=== PATIENT | female | born 1960 | race Caucasian/White ===

== ENCOUNTER 2017-03-20 12:30 | Emergency (ER) | payer BC, MEDICAID ==
[2017-03-20 12:30] VITALS: BMI 29.9
[2017-03-20 12:39] VITALS: TEMP 98
[2017-03-20 12:55] VITALS: RESP 18
--- NOTE | 2017-03-20 13:04 | ED PDOC ---
Arrival/HPI - General Chief Complaint: Upper Extremity Problem/Injury Time Seen by Provider: 03/20/17 12:51 Historian: Patient - History of Present Illness Narrative History of Present Illness (Text): 03/20/17 13:01 A 56 year old female, whose past medical history includes diabetes and hypothyroidism, presents to the emergency department for 3 day duration right shoulder pain radiating to the neck. She describes the pain as a pinching sensation. The patient denies fevers, chills, headache, dizziness, chest pain, shortness of breath, dyspnea on exertion, cough, abdominal pain, nausea, vomiting, diarrhea, back pain, urinary/bowel changes, or any other complaint. Time/Duration: Other (3 days) Symptom Onset: Sudden Symptom Course: Unchanged Activities at Onset: Rest, Light Context: Home Past Medical History - Provider Review Nursing Documentation Reviewed: Yes - Infectious Disease Hx of Infectious Diseases: None - Cardiac Hx Cardiac Disorders: Yes Hx Hypotension: Yes - Pulmonary Hx Respiratory Disorders: No - Neurological Hx Neurological Disorder: No - HEENT Hx HEENT Disorder: No - Renal Hx Renal Disorder: No - Endocrine/Metabolic Hx Endocrine Disorders: Yes Hx Diabetes Mellitus Type 2: Yes Hx Hypothyroidism: Yes - Hematological/Oncological Hx Blood Disorders: No - Integumentary Hx Dermatological Disorder: No - Musculoskeletal/Rheumatological Hx Musculoskeletal Disorders: No - Gastrointestinal Hx Gastrointestinal Disorders: No - Genitourinary/Gynecological Hx Genitourinary Disorders: No - Psychiatric Hx Psychophysiologic Disorder: No Hx Emotional Abuse: No Hx Physical Abuse: No Hx Substance Use: No - Surgical History Hx Cholecystectomy: Yes - Anesthesia Hx Anesthesia: Yes Hx Anesthesia Reactions: No - Suicidal Assessment Feels Threatened In Home Enviroment: No Family/Social History - Physician Review Nursing Documentation Reviewed: Yes Family/Social History: No Known Family HX Smoking Status: Never Smoked Hx Alcohol Use: No Hx Substance Use: No Hx Substance Use Treatment: No Allergies/Home Meds Allergies/Adverse Reactions: Allergies No Known Allergies Allergy (Verified 03/20/17 12:34) Home Medications: Home Meds Medication Instructions Recorded Confirmed Levothyroxine Sodium 0 mg PO DAILY 12/18/13 03/20/17 Metformin Hydrochloride [Metformin] 500 mg PO DAILY 12/18/13 03/20/17 Empagliflozin [Jardiance] 10 mg PO DAILY 03/20/17 03/20/17 Lisinopril [Zestril] 2.5 mg PO DAILY 03/20/17 03/20/17 Review of Systems - Physician Review All systems were reviewed & negative as marked: Yes - Review of Systems Constitutional: absent: Fevers, Night Sweats Respiratory: absent: SOB, Cough Cardiovascular: absent: Chest Pain, FRANK Gastrointestinal: absent: Abdominal Pain, Stool Changes, Diarrhea, Nausea, Vomiting Genitourinary Female: absent: Urine Output Changes Musculoskeletal: Neck Pain, Other (Right shoulder pain). absent: Back Pain Neurological: Other (No numbness). absent: Headache, Dizziness, Focal Weakness Physical Exam Vital Signs Reviewed: Yes Vital Signs Temp Pulse Resp BP Pulse Ox 03/20/17 15:12 84 18 120/82 100 03/20/17 14:09 86 18 118/79 98 03/20/17 12:40 98.0 F 91 H 18 120/87 98 03/20/17 12:36 98.0 F 91 H 17 120/87 98 Temperature: Afebrile Blood Pressure: Normal Pulse: Tachycardic Respiratory Rate: Normal Appearance: Positive for: Well-Appearing, Non-Toxic, Comfortable Pain Distress: Mild Mental Status: Positive for: Alert and Oriented X 3 - Systems Exam Head: Present: Atraumatic, Normocephalic Pupils: Present: PERRL Extroacular Muscles: Present: EOMI Conjunctiva: Present: Normal Mouth: Present: Moist Mucous Membranes Neck: Present: Normal Range of Motion, Paraspinal Tenderness (Right paraspinal tenderness). No: MIDLINE TENDERNESS Respiratory/Chest: Present: Clear to Auscultation, Good Air Exchange. No: Respiratory Distress, Accessory Muscle Use Cardiovascular: Present: Regular Rate and Rhythm, Normal S1, S2. No: Murmurs Abdomen: Present: Normal Bowel Sounds. No: Tenderness, Distention, Peritoneal Signs Back: Present: Normal Inspection Upper Extremity: Present: Tenderness (right sided anterior shoulder tenderness) . No: Normal ROM (limited ROM even with my assistance secondary to pain. Rigth sided pain with movement of the right shoulder anteriorly (10 degrees) and laterally (30 degrees)) Lower Extremity: Present: Normal Inspection. No: Edema Neurological: Present: GCS=15, CN II-XII Intact, Speech Normal Skin: Present: Warm, Dry, Normal Color. No: Rashes Psychiatric: Present: Alert, Oriented x 3, Normal Insight, Normal Concentration Medical Decision Making ED Course and Treatment: 03/20/17 14:07 Impression: A 56 year old female presents with 3 day duration right shoulder and neck pain r /o arthritis r/o tendonitis r/o msk Plan: -- Right Shoulder X-Ray -- Labs -- Urinalysis -- Flexeril, Toradol -- Reassess and disposition Prior Visits: Notes and results from previous visits were reviewed. Patient was last seen in the emergency department on 02/14/14. The patient was seen in the emergency department s/p a fall on her hands and knees. Patient was discharged home on Naprosyn. Progress Notes: Radiographs of the Right Shoulder Dictator : Dex Guerra MD Report Date : 03/20/2017 14:48:15 IMPRESSION: No evidence of acute fracture or dislocation. Moderate osteoarthritic changes at the right AC joint On reevaluation, patient felt much better. Increased ROM. Will Rx Flexeril and Motrin and will have her follow up with her PMD in 1-2days. - RAD Interpretation Radiology Orders: 03/20/17 13:01 SHOULDER RIGHT [RAD] Stat - Medication Orders Current Medication Orders: Discontinued Medications Cyclobenzaprine HCl (Flexeril) 5 mg PO STAT STA Stop: 03/20/17 13:02 Last Admin: 03/20/17 14:52 Dose: 5 mg Ketorolac Tromethamine (Toradol) 60 mg IM STAT STA Stop: 03/20/17 13:02 Last Admin: 03/20/17 14:52 Dose: 60 mg MAR Pain Assessment Document 03/20/17 14:52 SF (Rec: 03/20/17 14:52 SF [id number]) Pain Reassessment Is this a pain reassessment? Yes Sleep Is patient sleeping during reassessment? No Presence of Pain Presence of Pain Yes IM Administration Charges Document 03/20/17 14:52 SF (Rec: 03/20/17 14:52 SF [email or web address]) Injection Site MAR Injection Site Left Deltoid Charges for Administration # of IM Administrations 1 - Scribe Statement The provider has reviewed the documentation as recorded by the Scribe Gretta Francis Provider Scribe Attestation: All medical record entries made by the Scribe were at my direction and personally dictated by me. I have reviewed the chart and agree that the record accurately reflects my personal performance of the history, physical exam, medical decision making, and the department course for this patient. I have also personally directed, reviewed, and agree with the discharge instructions and disposition. Disposition/Present on Arrival - Present on Arrival Any Indicators Present on Arrival: No History of DVT/PE: No History of Uncontrolled Diabetes: No Urinary Catheter: No History of Decub. Ulcer: No History Surgical Site Infection Following: None - Disposition Have Diagnosis and Disposition been Completed?: Yes Diagnosis: Right shoulder strain Disposition: HOME/ ROUTINE Disposition Time: 14:58 Patient Plan: Discharge Condition: IMPROVED Discharge Instructions (ExitCare): Rotator Cuff Injury (ED) Additional Instructions: Ms Hawley thank you for letting us take care of you today. Your provider was Dr. Mayes. You were treated for Shoulder Strain. The emergency medical care you received today was directed at your acute symptoms. If you were prescribed any medication, please fill it and take as directed. It may take several days for your symptoms to resolve. Return to the Emergency Department if your symptoms worsen, do not improve, or if you have any other problems. Please contact your doctor or call one of the physicians/clinics you have been referred to that are listed on the Patient Visit Information form that is included in your discharge packet. Bring any paperwork you were given at discharge with you along with any medications you are taking to your follow up visit. Our treatment cannot replace ongoing medical care by a primary care provider (PCP) outside of the emergency department. Thank you for allowing the [facility] team to be part of your care today. If you had an X-Ray or CT scan: A Radiologist will review the ED reading if any change in treatment is needed we will contact you. If you had a blood, urine, or wound culture: It will take several days for the results, if any change in treatment is needed we will contact you. If you had an STI test: It will take 48 hours for the results. Please call after 1 week if you have not heard back. Prescriptions: Cyclobenzaprine [Cyclobenzaprine HCl] 5 mg PO Q8 PRN #20 tab PRN Reason: Muscle Spasm Ibuprofen [Motrin] 600 mg PO Q6 PRN #30 tab PRN Reason: Pain, Moderate (4-7) Referrals: PCP,NO [Primary Care Provider] - Follow up with primary Forms: [employer] ([place]), WORK NOTE
--- NOTE | 2017-03-20 14:49 | RAD ---
PROCEDURE: Radiographs of the Right Shoulder HISTORY: pain r/o fx COMPARISON: No prior. FINDINGS: BONES: Normal. No fracture. JOINTS: Moderate osteoarthritic changes noted at the right AC joint associated with inferior Spur. SOFT TISSUES: Normal. OTHER FINDINGS: None. IMPRESSION: No evidence of acute fracture or dislocation. Moderate osteoarthritic changes at the right AC joint
[2017-03-20 15:14] VITALS: BP 120/82; PULSE 84; O2SAT 100
== END 2017-03-20 15:15 | disposition home or self-care (01) ==
LOC: ED 12:30
DX: S46.911A Strain of unspecified muscle, fascia and tendon at shoulder and upper arm level, right arm, initial encounter (principal); X58.XXXA Exposure to other specified factors, initial encounter; Y92.009 Unspecified place in unspecified non-institutional (private) residence as the place of occurrence of the external cause; E03.9 Hypothyroidism, unspecified; E11.9 Type 2 diabetes mellitus without complications; Z79.84 Long term (current) use of oral hypoglycemic drugs
CPT/HCPCS: 73030; 96372; 99285; J1885

== ENCOUNTER 2017-07-11 11:18 | Emergency (ER) | payer BC ==
[2017-07-11 11:19] VITALS: BMI 29.9
[2017-07-11] MEDS ORDERED: MethylPREDNISolone Depo 40 mg/ml Inj IM STA (11:54)
--- NOTE | 2017-07-11 11:58 | ED PDOC ---
Arrival/HPI - General Chief Complaint: Lower Extremity Problem/Injury Time Seen by Provider: 07/11/17 11:44 Historian: Patient - History of Present Illness Narrative History of Present Illness (Text): 07/11/17 11:44 Rosario Hawley is a 56 year old female, whose past medical history includes diabetes, who presents to the emergency department complaining of left-sided lower back pain that radiates down her left leg for the past four days. Patient states that she has taken Ibuprofen to little relief. Patient denies any injury , trauma, or any other complaints at this time. Time/Duration: < week Symptom Onset: Gradual Symptom Course: Unchanged Activities at Onset: Light Context: Home Past Medical History - Provider Review Nursing Documentation Reviewed: Yes - Infectious Disease Hx of Infectious Diseases: None - Reproductive Menopause: Yes - Cardiac Hx Cardiac Disorders: Yes Hx Hypotension: Yes - Pulmonary Hx Respiratory Disorders: No - Neurological Hx Neurological Disorder: No - HEENT Hx HEENT Disorder: No - Renal Hx Renal Disorder: No - Endocrine/Metabolic Hx Endocrine Disorders: Yes Hx Diabetes Mellitus Type 2: Yes Hx Hypothyroidism: Yes - Hematological/Oncological Hx Blood Disorders: No - Integumentary Hx Dermatological Disorder: No - Musculoskeletal/Rheumatological Hx Musculoskeletal Disorders: Yes Hx Arthritis: Yes - Gastrointestinal Hx Gastrointestinal Disorders: No - Genitourinary/Gynecological Hx Genitourinary Disorders: No - Psychiatric Hx Psychophysiologic Disorder: No Hx Emotional Abuse: No Hx Physical Abuse: No Hx Substance Use: No - Surgical History Hx Cholecystectomy: Yes - Anesthesia Hx Anesthesia: Yes Hx Anesthesia Reactions: No - Suicidal Assessment Feels Threatened In Home Enviroment: No Family/Social History - Physician Review Nursing Documentation Reviewed: Yes Family/Social History: No Known Family HX Smoking Status: Never Smoked Hx Alcohol Use: No Hx Substance Use: No Hx Substance Use Treatment: No Allergies/Home Meds Allergies/Adverse Reactions: Allergies No Known Allergies Allergy (Verified 07/11/17 11:23) Home Medications: Home Meds Medication Instructions Recorded Confirmed Levothyroxine Sodium 88 mcg PO DAILY 12/18/13 03/20/17 Metformin Hydrochloride [Metformin] 500 mg PO DAILY 12/18/13 07/11/17 Empagliflozin [Jardiance] 10 mg PO DAILY 03/20/17 07/11/17 Lisinopril [Zestril] 2.5 mg PO DAILY 03/20/17 07/11/17 Review of Systems - Physician Review All systems were reviewed & negative as marked: Yes - Review of Systems Constitutional: absent: Fevers, Night Sweats Eyes: absent: Vision Changes ENT: absent: Hearing Changes Respiratory: absent: SOB, Cough Cardiovascular: absent: Chest Pain Gastrointestinal: absent: Abdominal Pain Genitourinary Female: absent: Dysuria, Frequency Musculoskeletal: Back Pain Skin: absent: Rash, Pruritis Neurological: absent: Headache Endocrine: absent: Diaphoresis Psychiatric: absent: Anxiety, Depression Physical Exam Vital Signs Reviewed: Yes Vital Signs Temp Pulse Resp BP Pulse Ox 07/11/17 14:07 64 18 126/71 99 07/11/17 13:27 98.0 F 68 18 128/75 99 07/11/17 11:25 97.5 F L 72 16 130/83 100 Temperature: Afebrile Blood Pressure: Normal Pulse: Regular Respiratory Rate: Normal Appearance: Positive for: Well-Appearing, Non-Toxic, Comfortable Pain Distress: None Mental Status: Positive for: Alert and Oriented X 3 - Systems Exam Head: Present: Atraumatic, Normocephalic Pupils: Present: PERRL Extroacular Muscles: Present: EOMI Conjunctiva: Present: Normal Mouth: Present: Moist Mucous Membranes Neck: Present: Normal Range of Motion Respiratory/Chest: Present: Clear to Auscultation, Good Air Exchange. No: Respiratory Distress, Accessory Muscle Use Cardiovascular: Present: Regular Rate and Rhythm, Normal S1, S2. No: Murmurs Abdomen: Present: Normal Bowel Sounds. No: Tenderness, Distention, Peritoneal Signs Back: Present: Normal Inspection Upper Extremity: Present: Normal Inspection. No: Cyanosis, Edema Lower Extremity: Present: Normal Inspection. No: Edema Neurological: Present: GCS=15, CN II-XII Intact, Speech Normal Skin: Present: Warm, Dry, Normal Color. No: Rashes Psychiatric: Present: Alert, Oriented x 3, Normal Insight, Normal Concentration Medical Decision Making ED Course and Treatment: 07/11/17 12:07 Impression: 56 year old female complaining of lower back pain that radiates down her left leg for the past four days. Differential Diagnosis included but are not limited to: Sciatica Plan: -- Lumbar Spine w/o contrast -- Flexeril, Toradol, and Depo-Medrol -- Reassess and disposition Prior Visits: Notes and results from previous visits were reviewed. Patient was last seen in the emergency department on 03/20/17 for 3 day duration right shoulder pain radiating to the neck. Patient was discharged home. Progress Notes: 07/11/17 15:26 CT Lumbar Spine without contrast: Creator : Martin Lopez MD FINDINGS: VERTEBRAE:Unremarkable. No fracture. Normal alignment. DISCS/SPINAL CANAL/NEURAL FORAMINA: L1-2: Unremarkable. L2-3: Unremarkable. L3-4: Unremarkable. L4-5: Unremarkable. L5-S1: Unremarkable. PARASPINAL SOFT TISSUES:Unremarkable. OTHER FINDINGS:None. IMPRESSION: Unremarkable CT of Lumbar Spine. - Lab Interpretations I have reviewed the lab results: Yes - RAD Interpretation Radiology Orders: 07/11/17 11:54 LUMBAR SPINE W/O CONTRAST [CT] Stat - Medication Orders Current Medication Orders: Discontinued Medications Cyclobenzaprine HCl (Flexeril) 10 mg PO STAT STA Stop: 07/11/17 11:55 Last Admin: 07/11/17 12:17 Dose: 10 mg Ketorolac Tromethamine (Toradol) 60 mg IM STAT STA Stop: 07/11/17 11:55 Last Admin: 07/11/17 12:17 Dose: 60 mg MAR Pain Assessment Document 07/11/17 12:17 EQ (Rec: 07/11/17 12:17 EQ [id number]) Pain Reassessment Is this a pain reassessment? No Sleep Is patient sleeping during reassessment? No Presence of Pain Presence of Pain Yes IM Administration Charges Document 07/11/17 12:17 EQ (Rec: 07/11/17 12:17 EQ [id number]) Charges for Administration # of IM Administrations 1 Methylprednisolone Acetate (Depo-Medrol) 80 mg IM STAT STA Stop: 07/11/17 11:55 Last Admin: 07/11/17 12:17 Dose: 80 mg IM Administration Charges Document 07/11/17 12:17 EQ (Rec: 07/11/17 12:17 EQ [id number]) Injection Site MAR Injection Site Left Deltoid Charges for Administration # of IM Administrations 1 - PA / [employer] / Resident Statement MD/DO has reviewed & agrees with the documentation as recorded. - Scribe Statement The provider has reviewed the documentation as recorded by the Brice Cook Provider Scribe Attestation: All medical record entries made by the Scribe were at my direction and personally dictated by me. I have reviewed the chart and agree that the record accurately reflects my personal performance of the history, physical exam, medical decision making, and the department course for this patient. I have also personally directed, reviewed, and agree with the discharge instructions and disposition. Disposition/Present on Arrival - Present on Arrival Any Indicators Present on Arrival: No History of DVT/PE: No History of Uncontrolled Diabetes: No Urinary Catheter: No History of Decub. Ulcer: No History Surgical Site Infection Following: None - Disposition Have Diagnosis and Disposition been Completed?: Yes Diagnosis: Sciatica Disposition: HOME/ ROUTINE Disposition Time: 14:08 Patient Plan: Discharge Patient Problems: Current Active Problems Problem Status Onset Sciatica Acute Condition: GOOD Discharge Instructions (ExitCare): Sciatica (DC), Sciatica Exercises Print Language: [place]AG[place] Additional Instructions: [place] - Follow up with your doctor. Motrin is for pain, Percocet is for bad pain, Flexeril is for spasm. Return to us if worse. Best- Dr. Berto Khan Prescriptions: Cyclobenzaprine [Cyclobenzaprine HCl] 10 mg PO TID #30 tab Ibuprofen [Motrin Tab] 800 mg PO TID #30 tab oxyCODONE/Acetaminophen [Percocet 5/325 mg Tab] 1 ea PO QID #20 tab Referrals: Aj Bragg, [Primary Care Provider] - Follow up with primary Forms: [employer]no (Upper Sorbian)
[2017-07-11 13:27] VITALS: RESP 18; TEMP 98; O2SAT 99
--- NOTE | 2017-07-11 13:32 | CT ---
PROCEDURE: CT Lumbar Spine without contrast HISTORY: Left Sided Lumbar Radiculopathy COMPARISON: None. TECHNIQUE: Axial computed tomography images were obtained of the lumbar spine without the use of intravenous contrast. Coronal and sagittal reformatted images were created and reviewed. Radiation dose: Total exam DLP = 1411 mGy-cm. This CT exam was performed using one or more of the following dose reduction techniques: Automated exposure control, adjustment of the mA and/or kV according to patient size, and/or use of iterative reconstruction technique. FINDINGS: VERTEBRAE: Unremarkable. No fracture. Normal alignment. DISCS/SPINAL CANAL/NEURAL FORAMINA: L1-2: Unremarkable. L2-3: Unremarkable. L3-4: Unremarkable. L4-5: Unremarkable. L5-S1: Unremarkable. PARASPINAL SOFT TISSUES: Unremarkable. OTHER FINDINGS: None. IMPRESSION: Unremarkable CT of Lumbar Spine.
[2017-07-11 14:08] VITALS: BP 126/71; PULSE 64
== END 2017-07-11 22:18 | disposition home or self-care (01) ==
LOC: ED 11:18
DX: M54.30 Sciatica, unspecified side (principal); E03.9 Hypothyroidism, unspecified; E11.9 Type 2 diabetes mellitus without complications
CPT/HCPCS: 72131; 96372; 99284; J1030; J1885

== ENCOUNTER 2018-07-25 12:36 | Observation (INO) | payer BC ==
[2018-07-25 13:42] VITALS: BMI 31.8
--- NOTE | 2018-07-25 13:51 | ED PDOC ---
Arrival/HPI - General Chief Complaint: Weakness/Neurological Deficit Time Seen by Provider: 07/25/18 12:41 - History of Present Illness Narrative History of Present Illness (Text): 07/25/18 13:47 Patient is a 57-year-old F with PMH diabetes mellitus who presents to [facility] emergency department due to left facial droop (eye and mouth) that her son says started around 11AM this morning. Per Patient's son, he came home to find the Patient with a droopy eyelid (left) and droopy mouth (left). Patient attempted to drink coffee, but was unable to close her mouth all the way and spilled coffee. Patient denied numbness, tingling, weakness in upper and/or lower extremities. Patient denies bowel and or urinary incontinence, headache, chest pain, and/or blurred vision. Patient does endorse neck pain that she says occurred overnight. Time/Duration: 4-6 hours Symptom Course: Improving Past Medical History - Provider Review Nursing Documentation Reviewed: Yes - Infectious Disease Hx of Infectious Diseases: None - Reproductive Menopause: No - Cardiac Hx Cardiac Disorders: Yes Hx Hypotension: Yes - Pulmonary Hx Respiratory Disorders: No - Neurological Hx Neurological Disorder: No - HEENT Hx HEENT Disorder: No - Renal Hx Renal Disorder: No - Endocrine/Metabolic Hx Endocrine Disorders: Yes Hx Diabetes Mellitus Type 2: Yes Hx Hypothyroidism: Yes - Hematological/Oncological Hx Blood Disorders: No - Integumentary Hx Dermatological Disorder: No - Musculoskeletal/Rheumatological Hx Musculoskeletal Disorders: Yes Hx Arthritis: Yes - Gastrointestinal Hx Gastrointestinal Disorders: No - Genitourinary/Gynecological Hx Genitourinary Disorders: No - Psychiatric Hx Psychophysiologic Disorder: No Hx Emotional Abuse: No Hx Physical Abuse: No Hx Substance Use: No - Surgical History Hx Cholecystectomy: Yes - Anesthesia Hx Anesthesia: Yes Hx Anesthesia Reactions: No - Suicidal Assessment Feels Threatened In Home Enviroment: No Family/Social History - Physician Review Nursing Documentation Reviewed: Yes Family/Social History: No Known Family HX Smoking Status: Never Smoked Hx Alcohol Use: No Hx Substance Use: No Hx Substance Use Treatment: No Allergies/Home Meds Allergies/Adverse Reactions: Allergies No Known Allergies Allergy (Verified 07/11/17 11:23) Home Medications: Home Meds Medication Instructions Recorded Confirmed Levothyroxine [Synthroid] 88 mcg PO DAILY 07/25/18 07/25/18 Lisinopril [Zestril] 2.5 mg PO DAILY 07/25/18 07/25/18 MetFORMIN [glucoPHAGE] 1,000 mg PO DAILY 07/25/18 07/25/18 Review of Systems - Review of Systems Constitutional: absent: Fatigue, Weight Change, Fevers Eyes: absent: Vision Changes, Photophobia ENT: absent: Hearing Changes, Voice Changes, Sore Throat Respiratory: absent: SOB, Cough, Sputum, Wheezing Cardiovascular: absent: Chest Pain, Palpitations, Edema, Calf Pain, Syncope Gastrointestinal: absent: Abdominal Pain, Diarrhea, Nausea, Vomiting Genitourinary Female: absent: Dysuria, Frequency Musculoskeletal: Neck Pain. absent: Back Pain Skin: absent: Rash Neurological: Facial Droop. absent: Headache, Dizziness, Focal Weakness, Gait Changes, Speech Changes, Disequilibrium, Seizure Psychiatric: absent: Anxiety Physical Exam Vital Signs Temp Pulse Resp BP Pulse Ox 07/25/18 13:42 98.5 F 77 18 121/81 98 Temperature: Afebrile Blood Pressure: Normal Pulse: Regular Respiratory Rate: Normal Appearance: Positive for: Well-Appearing, Non-Toxic, Comfortable Pain Distress: None Mental Status: Positive for: Alert and Oriented X 3 - Systems Exam Head: Present: Atraumatic. No: Tenderness, Abrasion Pupils: Present: PERRL. No: Sluggish Extroacular Muscles: Present: EOMI. No: Gaze Palsy Conjunctiva: Present: Normal Mouth: Present: Moist Mucous Membranes. No: Drooling Nose (Internal): Present: Normal Inspection Neck: Present: Normal Range of Motion. No: Meningeal Signs Respiratory/Chest: No: Respiratory Distress, Accessory Muscle Use Cardiovascular: Present: Regular Rate and Rhythm Upper Extremity: Present: Normal Inspection, Normal ROM. No: Cyanosis Lower Extremity: Present: Normal Inspection. No: Edema Neurological: Present: GCS=15, CN II-XII Intact, Speech Normal, Motor Func Grossly Intact, Normal Sensory Function, Normal Cerebellar Funct, Gait Normal, Memory Normal Skin: Present: Warm, Dry, Normal Color. No: Rashes Psychiatric: Present: Alert, Oriented x 3, Normal Insight, Normal Concentration Medical Decision Making ED Course and Treatment: 07/25/18 13:59 Patient is a 57-year-old F with PMH diabetes mellitus who presents to [facility] emergency department due to left facial droop (eye and mouth) that her son says started around 11AM this morning. - EKG ordered: NSR at 69bpm, no ST changes (read by me) Imaging: - CT head without contrast Labs: - Troponin I - Hemoglobin A1C - TSH - Vitamin B12 - Folate - CBC - CMP - Mg - Phos - Lipid panel 07/25/18 14:07 Of note, CODE STROKE CALLED. Patient evaluated. NIHSS score=0. Thus, NOT a code stroke at this time. 07/25/18 15:00 CT Head without contrast: minimal chronic sphenoid sinusitis. unremarkable examination. no evidence of acute infarct 07/25/18 15:52 CBC unremarkable NIHSS Scale ([place]) Time Performed: 13:50 - How Severe is the Stoke Baseline Level of Consciousness: 0=Alert LOC to Questions: 0=Both comments correct LOC to commands: 0=Obeys both correctly Best Gaze: 0=Normal Visual: 0=No visual loss Facial: 0=Normal Motor Arm - Left: 0=No drift Motor Arm - Right: 0=No drift Motor Leg - Left: 0=No drift Motor Leg - Right: 0=No drift Limb Ataxia: 0=Absent Sensory: 0=Normal Best Language: 0=No aphasia Dysarthia: 0=Normal articulation Extinction & Inattention (Neglect): 0=Normal, no object Score: 0 Risk Level: No Stroke Risk Disposition/Present on Arrival - Present on Arrival Any Indicators Present on Arrival: No History of DVT/PE: No History of Uncontrolled Diabetes: No Urinary Catheter: No History of Decub. Ulcer: No History Surgical Site Infection Following: None - Disposition Disposition: HOSPITALIZED
--- NOTE | 2018-07-25 14:51 | CT ---
Date of service: 07/25/2018 PROCEDURE: CT HEAD WITHOUT CONTRAST. HISTORY: possible new stroke COMPARISON: None available. TECHNIQUE: Axial computed tomography images were obtained through the head/brain without intravenous contrast. Radiation dose: Total exam DLP = 801.92 mGy-cm. This CT exam was performed using one or more of the following dose reduction techniques: Automated exposure control, adjustment of the mA and/or kV according to patient size, and/or use of iterative reconstruction technique. FINDINGS: HEMORRHAGE: No intracranial hemorrhage. BRAIN: No mass effect or edema. No atrophy or chronic microvascular ischemic changes. VENTRICLES: Unremarkable. No hydrocephalus. CALVARIUM: Unremarkable. PARANASAL SINUSES: Minimal chronic sphenoid sinusitis MASTOID AIR CELLS: Unremarkable as visualized. No inflammatory changes. OTHER FINDINGS: None. IMPRESSION: Minimal chronic sphenoid sinusitis. Otherwise unremarkable examination. No evidence of acute infarct.
[2018-07-25 15:50] LABS: BASO # 0.01 K/mm3 (0.0-2.0); BASO % 0.1 % (0.0-3.0); EOS # 0.1 (0.0-0.7); EOS % 1.8 % (1.5-5.0); HEMOGLOBIN 12.1 g/dL (12.0-16.0); LYMPH # 2.2 (1.2-3.4); LYMPH % 31.8 % (22.0-35.0); MEAN CELL VOLUME 79.4 fl (80.0-105.0); MEAN CORPUSCULAR HEMOGLOBIN 25.4 pg (25.0-35.0); MEAN PLATELET VOLUME 11.7 fl (7.0-11.0); MONO # 0.5 (0.1-0.6); MONO % 6.8 % (1.0-6.0); RBC 4.76 10^6/uL (3.5-6.1); RED CELL DISTRIBUTION WIDTH 15.2 % (11.5-14.5); WHITE BLOOD COUNT 6.8 10^3/uL (4.5-11.0)
[2018-07-25 15:55] LABS: INR 0.98; PARTIAL THROMBOPLASTIN TIME 31.3 Seconds (26.9-38.3); PROTHROMBIN TIME 10.9 SECONDS (9.4-12.5)
[2018-07-25 16:18] LABS: ALB/GLOB RATIO 1.1 (1.1-1.8); ALBUMIN 4.3 g/dL (3.0-4.8); ALT/SGPT 10 U/L (7-56); AST/SGOT 38 U/L (14-36); BLOOD UREA NITROGEN 13 mg/dL (7-21); CALCIUM 9.8 mg/dL (8.4-10.5); GFR NON-AFRICAN AMERICAN > 60; HDL CHOLESTEROL 57 mg/dL (29-60)
[2018-07-25 16:24] LABS: LDL CHOLESTEROL 96 mg/dL (0-129); TROPONIN I < 0.01 ng/mL
--- NOTE | 2018-07-25 19:24 | CON ---
DATE: 07/25/2018 NEUROLOGY CONSULTATION CHIEF COMPLAINT: Transient left facial droop. HISTORY OF PRESENT ILLNESS: This is a 57-year-old woman with history of type 2 diabetes mellitus and dyslipidemia, who presented to the hospital with left facial droop in terms of difficulty to close the eyes as well as drooping on the left side of the mouth, which started around 11 a.m. today on 07/25/2018. No focal weakness in the extremities. She still has mild absence of left forehead crinkling and a mild residual left facial droop and mild Coello's phenomena and difficulty in closing the left eye, very mild. No double vision. No focal weakness otherwise of the extremities. No pronator drift seen. CAT scan of the head showed no acute intracranial abnormalities. PAST MEDICAL HISTORY: As above. SOCIAL HISTORY: No illicit drug use, smoking, or EtOH abuse. ALLERGIES: NO KNOWN DRUG ALLERGIES. REVIEW OF SYSTEMS: A 14-point review of systems is negative except as per the HPI. FAMILY HISTORY: Noncontributory. MEDICATIONS: Reviewed by nurse's reconciliation sheet. LABORATORY DATA: Sodium is 140, potassium 4.2, chloride 104, carbon dioxide 26, BUN of 13, creatinine 0.6, and random glucose of 102. PHYSICAL EXAMINATION: GENERAL: The patient is seen up in bed, in no acute distress. VITAL SIGNS: Temperature 97.8, pulse rate 69, blood pressure 127/75, respiratory rate of 16, and oxygen saturation 96% on room air. HEENT: Atraumatic and normocephalic. PERRLA. Extraocular muscles intact. NECK: Supple. No JVD. No adenopathy noted. LUNGS: Clear to auscultation. No adventitious sounds. HEART: S1 and S2, normal rate and rhythm. No murmurs, rubs, or gallops. ABDOMEN: Soft, nontender and nondistended. Bowel sounds are present. EXTREMITIES: No clubbing. No cyanosis. Peripheral pulses 2+ bilaterally. NEUROLOGIC: The patient is alert and oriented to person, place, month, and year. Speech is fluent without any errors. Cranial nerves II through XII are intact except for some mild left facial weakness and the upper and lower extremities weakness and difficulty in closing the left eye tight shut with a mild Coello's phenomena and decreased sensation of the left side of face compared to the right. Rest of the cranial nerves are intact. Motor exam; moves all extremities equally. No pronator drift seen. Sensory exam; light touch and pinprick proprioception and vibration are intact. DTRs are 2+ throughout. Toes are downgoing. Coordination; [id number] is intact. No dysmetria noted. Gait is deferred for now. ASSESSMENT: This is a 57-year-old woman with history of type 2 diabetes mellitus who presents with left upper and lower facial weakness that started around 11 a.m. on 07/25/2018, but no focal weakness of the extremities. CAT scan of the head showed no acute intracranial abnormality. 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 RECOMMENDATIONS: At this time, I would recommend; 1. Aspirin 81 mg and Lipitor 40 mg for stroke prevention. 2. Facial muscle exercise as outpatient. 3. Keep blood sugars between 140 and 180 and a diabetic diet. 4. Follow up as an outpatient. Thank you for this consult. Cb Waterman MD
[2018-07-25 20:49] LABS: FOLATE > 20.0 ng/mL
[2018-07-25] MEDS: Insulin Lispro (humaLOG) MEDIUM Coverage SC SCH (21:43)
--- NOTE | 2018-07-25 21:51 | CARD ---
APPROVED REPORT Date of service: 07/25/2018 EKG Measurement Heart [id number] [id number] <Conclusion> Normal sinus rhythm Possible iInferior infarct, age undetermined NDSTT abnormalities Abnormal ECG
--- NOTE | 2018-07-26 00:09 | HP ---
DATE OF EXAM: 07/25/2018 HISTORY OF PRESENT ILLNESS: The patient is a 57-year-old who was brought to emergency room when family noticed that she had facial droop on the left side. According to family, she was having difficulty closing her eyes. She did not have any weakness or numbness. No history of fall. No history of headache. No nausea or vomiting. No diarrhea. No dizziness. No cough or congestion. PAST MEDICAL HISTORY: Significant for: 1. Hypertension. 2. Hyperlipidemia. 3. Noninsulin-dependent diabetes. SOCIAL HISTORY: She denies smoking, drinking, or alcohol use. ALLERGIES: SHE IS NOT ALLERGIC TO ANY MEDICATIONS. MEDICATIONS AT HOME: She is on lisinopril 2.5 mg daily, levothyroxine 88 mcg daily, and metformin 1000 daily. REVIEW OF SYSTEMS: Left facial weakness and droop. PHYSICAL EXAMINATION: GENERAL: She is awake, alert, oriented, and communicative. VITAL SIGNS: She is afebrile, pulse 69, respirations 16, and blood pressure 120/64. LUNGS: Bilateral fair airflow. No rhonchi or crackles. HEART: S1 and S2 audible. ABDOMEN: Soft and nontender. No rebound. No guarding. NEUROLOGIC: The patient is alert and alert, able to communicate. LABORATORY DATA: WBC 6.8, hemoglobin 12, hematocrit 37.8, and platelet 265. PT is 10.9. INR is 0.98. Chemistry; sodium 140, potassium 4.3, chloride 104, CO2 of 26, BUN 13, and creatinine 0.6. Hemoglobin A1c is 7.2. LFTs are within normal limits. Triglycerides 237. She had CT scan of the head done that is unremarkable. ASSESSMENT: 1. Left facial droop, etiology unclear. 2. Questionable stroke versus Coello's palsy. 3. Noninsulin-dependent diabetes. 4. Hyperlipidemia. PLAN: We will monitor her blood sugar. Start her on statin. Order for carotid Doppler. Neuro input noted and appreciated. Mone Argueta MD
[2018-07-26 00:37] VITALS: RESP 18; O2SAT 98
[2018-07-26] MEDS ORDERED: Levothyroxine 88 MCG TAB PO SCH (06:00)
[2018-07-26] MEDS: Insulin Lispro (humaLOG) MEDIUM Coverage SC SCH ×3 (07:37→17:19)
[2018-07-26 09:20] LABS: BARBITURATES, UR NEGATIVE (NEGATIVE); BENZODIAZEPINES, UR NEGATIVE (NEGATIVE); OPIATES, UR NEGATIVE (NEGATIVE); PHENCYCLIDINE, UR NEGATIVE (NEGATIVE)
[2018-07-26 12:13] VITALS: BP 133/82; TEMP 97.8
[2018-07-26 15:55] VITALS: PULSE 72
--- NOTE | 2018-07-26 20:42 | DS ---
HISTORY OF PRESENT ILLNESS: The patient is 57 years old, seen and examined sitting in chair, seems to be comfortable. Denies any chest pain. No shortness of breath. No weakness. No dizziness. She does have right facial slight droop with right lid lag. Otherwise, no weakness or numbness in any upper or lower extremities. PHYSICAL EXAMINATION: VITAL SIGNS: She is afebrile, pulse 66, respiration 18, and blood pressure 133/82. LUNGS: Bilateral fair airflow. No rhonchi or crackle. HEART: S1 and S2 audible. ABDOMEN: Soft and nontender. There is no hepatosplenomegaly. NEUROLOGIC: The patient is awake and alert, able to communicate. LABORATORY DATA: Blood sugar is 128, hemoglobin A1c 7.2. Thyroid profile is negative. B12 is 487. ASSESSMENT: 1. Coello's palsy, affecting right facial muscles. 2. Noninsulin-dependent diabetes. PLAN: The patient will be discharged today. We will discuss with Dr. Waterman if we need to give her acyclovir along with prednisone, and she can get physical therapy as outpatient. So she will be discharged today after being seen by Dr. Waterman. Mone Argueta MD
== END 2018-07-26 17:22 | disposition home or self-care (01) ==
LOC: ED 12:36 → ERH 16:35 → 2RSO 19:39
PROVIDERS: ADMIT Internal Medicine; ATTEND Internal Medicine
DX: G51.0 Bell's palsy (principal); E11.9 Type 2 diabetes mellitus without complications; I10 Essential (primary) hypertension; E03.9 Hypothyroidism, unspecified; E78.5 Hyperlipidemia, unspecified; Z79.84 Long term (current) use of oral hypoglycemic drugs
CPT/HCPCS: 70450; 80053; 80061; 82607; 82746; 82948; 83036; 83735; 84100; 84443; 84484; 85025; 85610; 85730; 93005; 97161; 97530; 99285; G0378; G0480; G8978; G8979; G8980